=== PATIENT | female | born 1995 | race Caucasian/White ===

== ENCOUNTER 2017-07-25 08:47 | Emergency (ER) | payer OTHER ==
[2017-07-25] MEDS ORDERED: MethylPREDNISolone 40 mg Vial IVP STA (09:15)
[2017-07-25] MEDS ORDERED: DiphenhydrAMINE 50 mg/ml Inj IVP STA (09:15)
[2017-07-25 09:27] VITALS: RESP 18; TEMP 98; O2SAT 98
--- NOTE | 2017-07-25 09:27 | C.PDOC ---
History Of Present Illness 21 y/o female presents to ED with complaints of chest tightness and sob associated with burning and itching sensation to face developed earlier today while at work. Patient states she was sick yesterday and saw PMD who prescribed Pantoprazole and Levaquin. Patient states she woke up with mild redness to face and as she was at work face became worse and she developed current symptoms which prompted visit to ED. Patient denies fever, chills, nausea, tongue or lip swelling. Time Seen by Provider: 07/25/17 09:00 Chief Complaint (Nursing): Chest Pain History Per: Patient History/Exam Limitations: no limitations Onset/Duration Of Symptoms: Hrs Current Symptoms Are (Timing): Still Present Quality: Tightness Past Medical History Reviewed: Historical Data, Nursing Documentation, Vital Signs Vital Signs: Last Vital Signs Temp 98 F 07/25/17 11:56 Pulse 89 07/25/17 11:56 Resp 18 07/25/17 11:56 BP 146/86 07/25/17 11:56 Pulse Ox 98 07/25/17 11:56 - Medical History PMH: No Chronic Diseases Surgical History: No Surg Hx - [facility] Procedures ESOPHAGOGASTRODUODENOSCOPY [EGD] W/CLOSED BIOPSY (08/11/14) Family History: States: No Known Family Hx - Social History Hx Tobacco Use: No Hx Alcohol Use: No Hx Substance Use: No - Immunization History Hx Tetanus Toxoid Vaccination: No Hx Influenza Vaccination: No Hx Pneumococcal Vaccination: No Review Of Systems Constitutional: Negative for: Fever, Chills Cardiovascular: Positive for: Chest Pain Respiratory: Positive for: Shortness of Breath Skin: Positive for: Rash Neurological: Negative for: Weakness, Numbness Physical Exam - Physical Exam Appears: Non-toxic, No Acute Distress Skin: Warm, Dry, Rash (Flushing and erythema to face) Head: Atraumatic, Normacephalic Eye(s): bilateral: Normal Inspection Oral Mucosa: Moist Tongue: Normal Appearing, No Swelling Lips: Normal Appearing, No Swelling Throat: Normal, No Erythema, No Exudate Neck: Normal ROM, Supple Cardiovascular: Rhythm Regular Respiratory: Normal Breath Sounds, No Rales, No Rhonchi, No Wheezing Extremity: Normal ROM, Capillary Refill (<2 seconds) Neurological/Psych: Oriented x3, Normal Speech, Normal Cognition ED Course And Treatment - Laboratory Results Result Diagrams: 07/25/17 09:45 07/25/17 09:45 ECG: Interpreted By Me, Viewed By Me ECG Rhythm: Sinus Bradycardia Rate From EC (bpm ) O2 Sat by Pulse Oximetry: 98 (RA) Pulse Ox Interpretation: Normal Medical Decision Making Medical Decision Making: Plan: Blood work and UA ordered. Pepcid, Prednisone, Benadryl and IV fluids administered On re-exam, the patient reports improvement of symptoms. Lugs are CTA, heart is RRR, Abdomen is soft, non-tender and the patient is tolerating PO well. Follow up with the medical doctor within 1-2 days. REturn if worsened. Disposition - Disposition Referrals: Shaik Rodarte MD [Staff Provider] - Disposition: HOME/ ROUTINE Disposition Time: 11:31 Condition: GOOD Additional Instructions: Follow up with medical doctor within 1-2 days. Return if worsened. 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 - Scribe Statement The provider has reviewed the documentation as recorded by the Scribsimba Donovan All medical record entries made by the Scribe were at my direction and personally dictated by me. I have reviewed the chart and agree that the record accurately reflects my personal performance of the history, physical exam, medical decision making, and the department course for this patient. I have also personally directed, reviewed, and agree with the discharge instructions and disposition.
[2017-07-25] MEDS ORDERED: Sodium Chloride 0.9% 1,000 ML IV ONE (09:34)
[2017-07-25] MEDS ORDERED: MethylPREDNISolone 40 mg Vial ONE (09:37)
[2017-07-25] MEDS ORDERED: DiphenhydrAMINE 50 mg/ml Inj ONE (09:37)
[2017-07-25 09:50] LABS: BASO % 0.7 % (0.0-2.0); EOS # 0.1 K/uL (0.0-0.7); EOS % 2.5 % (0.0-4.0); HEMOGLOBIN 14.3 g/dL (11.0-16.0); LYMPH # 1.3 K/uL (1.0-4.3); LYMPH % 25.8 % (20.0-40.0); MEAN CORPUSCULAR HEMOGLOBIN 30.4 pg (27.0-31.0); MEAN CORPUSCULAR HGB CONC 33.9 g/dL (33.0-37.0); MEAN PLATELET VOLUME 8.8 fL (7.2-11.7); MONO # 0.7 K/uL (0.0-0.8); NEUT # 2.8 K/uL (1.8-7.0); NRBC % 0.1 % (0.0-2.0); RBC 4.69 Mil/uL (3.80-5.20); RED CELL DISTRIBUTION WIDTH 14.7 % (11.5-14.5)
[2017-07-25 09:54] LABS: MEAN CELL VOLUME 89.6 fL (81.0-99.0)
[2017-07-25 10:12] LABS: HCG,QUALITATIVE URINE NEGATIVE (NEGATIVE)
[2017-07-25 10:15] LABS: SQUAMOUS EPITHIAL 7 /hpf (0-5); URINE BILIRUBIN NEGATIVE (NEGATIVE); URINE BLOOD 1+ (NEGATIVE); URINE CLARITY Clear (Clear); URINE COLOR Yellow (YELLOW); URINE GLUCOSE (UA) NORMAL (Normal); URINE LEUKOCYTE ESTERASE NEG Leu/uL (Negative); URINE PROTEIN NEGATIVE (NEGATIVE); URINE UROBILINOGEN NORMAL mg/dL (0.2-1.0)
[2017-07-25 10:30] LABS: ALB/GLOB RATIO 1.3 (1.0-2.1); ALBUMIN 3.9 g/dL (3.5-5.0); ALT/SGPT 34 U/L (9-52); AST/SGOT 40 U/L (14-36); BLOOD UREA NITROGEN 9 mg/dL (7-17); CALCIUM 8.7 mg/dl (8.6-10.4); GFR AFRICAN-AMERICAN > 60; GFR NON-AFRICAN AMERICAN > 60
[2017-07-25 11:57] VITALS: BP 146/86; PULSE 89
--- NOTE | 2017-07-28 10:25 | CARD ---
APPROVED REPORT EKG Measurement Heart [id number] <Conclusion> Sinus bradycardia Otherwise normal ECG
== END 2017-07-25 11:57 | disposition home or self-care (01) ==
LOC: C.ER 08:47
DX: L50.9 Urticaria, unspecified (principal)
CPT/HCPCS: 80053; 81001; 84703; 85025; 93005; 96374; 96375; 99284; J1200; J2920; J7040